=== PATIENT | male | born 1980 | race Caucasian/White ===

== ENCOUNTER 2020-02-01 16:49 | Emergency (ER) | payer BC ==
[2020-02-01 16:58] VITALS: BP 172/92; PULSE 81
--- NOTE | 2020-02-01 17:16 | EDM.PDOC ---
ED HPI GENERAL MEDICAL PROBLEM - General Chief Complaint: ENT Problem Stated Complaint: TOOTH ACHE Time Seen by Provider: 02/01/20 17:05 Source of Information: Reports: Patient History Limitations: Reports: No Limitations - History of Present Illness INITIAL COMMENTS - FREE TEXT/NARRATIVE: Has toothache since yesterday. Has dentist appt tomorrow. Has been taking advil without any relief. Tooth broke off yesterday. Has had multiple dental caries and is scheduled for root canal on a different one. 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 [No Known Home Meds] 02/01/20 [History] Past Medical History Musculoskeletal History: Reports: None - Past Surgical History Other Neurological Surgeries/Procedures: narcolepsy Other Musculoskeletal Surgeries/Procedures:: R)thumb Social & Family History - Family History Family Medical History: Noncontributory - Tobacco Use Smoking Status *Q: Never Smoker - Caffeine Use Caffeine Use: Reports: Energy Drinks - Recreational Drug Use Recreational Drug Use: No ED ROS ENT - Review of Systems Review Of Systems: See Below Constitutional: Denies: Fever, Chills HEENT: Reports: Dental Pain ED EXAM, ENT - Physical Exam Exam: See Below Exam Limited By: No Limitations General Appearance: Alert, WD/WN, Moderate Distress Mouth/Throat: Dental Pain (to the back right lower tooth. Has multiple caries and has one broke off on the left lower that he states is going to have a root canal coming up. No abcess noted.) Skin: Warm, Dry Course - Vital Signs Last Recorded V/S: Last Vital Signs Temp 99.0 F 02/01/20 16:55 Pulse 81 02/01/20 16:55 Resp 18 02/01/20 16:55 BP 172/92 H 02/01/20 16:55 Pulse Ox 99 02/01/20 16:55 Departure - Departure Time of Disposition: 17:14 Disposition: Home, Self-Care 01 Condition: Good Clinical Impression: Dental caries - Discharge Information *PRESCRIPTION DRUG MONITORING PROGRAM REVIEWED*: Not Applicable *COPY OF PRESCRIPTION DRUG MONITORING REPORT IN PATIENT JIMMY: Not Applicable Forms: ED Department Discharge Additional Instructions: take 2 tylenol and 2 advil at the same time about every 4-6 hours for pain Sum[place]all 5/325 1-2 tabs every 4 hours if the above does not work keep dentist appt tomorrow. Sepsis Event Note (ED) - Evaluation Sepsis Screening Result: No Definite Risk - Focused Exam Vital Signs: Vital Signs Temp Pulse Resp BP Pulse Ox 02/01/20 16:55 99.0 F 81 18 172/92 H 99 - Problem List & Annotations (1) Dental caries SNOMED Code(s): 70998723 Code(s): K02.9 - DENTAL CARIES, UNSPECIFIED Status: Acute Priority: High - Problem List Review Problem List Initiated/Reviewed/Updated: Yes
== END 2020-02-01 17:22 | disposition home or self-care (01) ==
LOC: CC.ED 16:49
DX: K02.9 Dental caries, unspecified (principal)
CPT/HCPCS: 99282